=== PATIENT | female | born 1980 | race African-American/Black ===

== ENCOUNTER 2019-09-11 21:30 | Emergency (ER) | payer MEDICAID ==
[~2019-09-11] VITALS: Ht 170.2 cm; Wt 59.0 kg
[2019-09-11 23:04] VITALS: BP 130/77
== END 2019-09-11 23:09 | disposition home or self-care (01) ==
LOC: ER 21:30
DX: R42 Dizziness and giddiness (principal); Z90.49 Acquired absence of other specified parts of digestive tract
CPT/HCPCS: 99282

== ENCOUNTER 2019-12-06 10:16 | Emergency (ER) | payer MEDICAID ==
[~2019-12-06] VITALS: Ht 170.2 cm; Wt 57.0 kg
[2019-12-06] MEDS ORDERED: SODIUM CHLORIDE 0.9% 1,000 ML IV ONE (10:55)
[2019-12-06] MEDS ORDERED: ACETAMINOPHEN 325MG TABLET PO STA (10:55)
[2019-12-06] MEDS ORDERED: DIPHENHYDRAMINE 50MG/ML VIAL IV ONE (11:00)
[2019-12-06] MEDS ORDERED: DEXAMETHASONE 10 MG/ML VIAL IV ONE (11:00)
[2019-12-06] MEDS ORDERED: METOCLOPRAMIDE HCL 10MG/2ML VIAL IV ONE (11:00)
[2019-12-06] MEDS ORDERED: LORAZEPAM 2MG/ML CPJ IV ONE (11:00)
[2019-12-06 11:28] LABS: CLARITY URINE CLEAR (CLEAR); COLOR URINE YELLOW (YELLOW); KETONES URINE 3+ (NEGATIVE); LEUKOCYTE ESTERASE URINE 1+ (NEGATIVE); NITRITE URINE NEGATIVE (NEGATIVE); OCCULT BLOOD URINE 2+ (NEGATIVE); PH URINE 6.5 (4.5-8.0); PROTEIN URINE TRACE (NEGATIVE); SPECIFIC GRAVITY URINE 1.022 (1.005-1.030)
[2019-12-06 11:39] LABS: BASOPHILS % 0.4 % (0.0-2.0); EOSINOPHILS % 0.2 % (0.0-5.0); HEMATOCRIT. 38.7 % (36.0-48.0); LYMPHOCYTES % 24.9 % (20.0-50.0); MEAN CORPUSCULAR HEMOGLOBIN 27.9 pg (28.0-32.0); MEAN CORPUSCULAR VOLUME 83.2 fL (81.0-99.0); MEAN PLATELET VOLUME 7.9 fl (7.4-10.4); MONOCYTES % 7.4 % (2.0-8.0); NEUTROPHILS % 67.1 % (40.0-76.0); PLATELET 300 x1000/uL (130-400); RED BLOOD CELL COUNT 4.66 mill/uL (4.2-5.4); RED CELL DISTRIBUTION WIDTH 14.4 % (11.6-14.6)
[2019-12-06 11:47] LABS: CHLORIDE 110 mEq/L (98-107)
[2019-12-06 11:50] LABS: PROTHROMBIN TIME 10.5 sec (9.6-11.0)
[2019-12-06 12:26] LABS: HCG SCREEN NEGATIVE
[2019-12-06 14:08] VITALS: BP 121/76
== END 2019-12-06 14:11 | disposition home or self-care (01) ==
LOC: ER 10:16
DX: R42 Dizziness and giddiness (principal); R51 Headache; Z90.49 Acquired absence of other specified parts of digestive tract
CPT/HCPCS: 36415; 70450; 71045; 80053; 81003; 81025; 84703; 85025; 85610; 87086; 93005; 96361; 96374; 96375; 99285; J1100; J1200; J2060; J2765; J7030

== ENCOUNTER 2021-10-15 08:19 | Emergency (ER) | payer MEDICAID ==
[~2021-10-15] VITALS: Ht 167.6 cm; Wt 80.0 kg
[2021-10-15 08:29] VITALS: BP 131/92
[2021-10-15] MEDS ORDERED: THROAT LOZENGES-BENZOCAINE/MENTH/CETYLPYRD CL LOZENGES MM ONE (08:45)
[2021-10-15] MEDS ORDERED: ACETAMINOPHEN 325MG TABLET PO ONE (08:45)
[2021-10-15 10:05] LABS: MONOTEST NEGATIVE (NEGATIVE)
[2021-10-15] MEDS ORDERED: ACET-2708 MT (10:46)
[2021-10-15] MEDS ORDERED: MED4 MT (10:46)
== END 2021-10-15 10:53 | disposition home or self-care (01) ==
LOC: ER 08:34
DX: J02.9 Acute pharyngitis, unspecified (principal); I10 Essential (primary) hypertension; Z20.822 Contact with and (suspected) exposure to COVID-19; Z90.49 Acquired absence of other specified parts of digestive tract; Z13.9 Encounter for screening, unspecified
CPT/HCPCS: 71045; 81025; 86308; 87070; 87426; 87430; 99284; C9803

== ENCOUNTER 2022-12-23 07:35 | Emergency (ER) | payer MEDICAID ==
[~2022-12-23] VITALS: Ht 172.7 cm; Wt 63.5 kg
[~2022-12-23 07:35] MED LIST: ACET-2708 MT; AMOX500T2 MT; CETI-106 MT; MED4 MT
[2022-12-23 07:48] VITALS: BP 144/87; PULSE 102; RESP 16; TEMP 98.5; O2SAT 99
== END 2022-12-23 10:48 | disposition left against medical advice (07) ==
LOC: ER 07:35
DX: Z53.21 Procedure and treatment not carried out due to patient leaving prior to being seen by health care provider (principal)
CPT/HCPCS: 99281

== ENCOUNTER 2023-07-13 08:28 | Emergency (ER) | payer MEDICAID, OTHER ==
[~2023-07-13] VITALS: Ht 172.7 cm; Wt 73.0 kg
[2023-07-13 08:31] VITALS: O2SAT 99
[2023-07-13] MEDS: SODIUM CHLORIDE 0.9% 1,000 ML IV ONE (09:12)
[2023-07-13 09:29] LABS: BASOPHILS % 0.3 % (0.0-2.0); HEMATOCRIT. 39.1 % (36.0-48.0); HEMOGLOBIN. 12.5 g/dL (12.0-16.0); LYMPHOCYTES % 17.3 % (20.0-50.0); MEAN CORPUSCULAR HEMOGLOBIN 26.6 pg (28.0-32.0); MEAN CORPUSCULAR HGB CONC 32.1 g/dL (31.0-37.0); MEAN CORPUSCULAR VOLUME 82.9 fL (81.0-99.0); MEAN PLATELET VOLUME 7.4 fl (7.4-10.4); MONOCYTES % 6.2 % (2.0-8.0); NEUTROPHILS % 76.2 % (40.0-76.0); PLATELET 276 x1000/uL (130-400); RED BLOOD CELL COUNT 4.72 mill/uL (4.2-5.4); RED CELL DISTRIBUTION WIDTH 14.8 % (11.6-14.6); WHITE BLOOD COUNT 13.1 x1000/uL (4.5-11.0)
[2023-07-13 09:39] LABS: HCG SCREEN NEGATIVE
[2023-07-13 09:45] LABS: ALANINE AMINOTRANSFERASE 84 IU/L (10-49); ALBUMIN 5.3 g/dL (3.2-4.8); ASPARTATE AMINOTRANSFERASE 56 IU/L (<34); BILIRUBIN TOTAL 0.7 mg/dL (0.1-1.0); CALCIUM 9.3 mg/dL (8.7-10.4); CARBON DIOXIDE 18 mEq/L (21-32); CHLORIDE 107 mEq/L (98-107); CREATININE 0.6 mg/dL (0.6-1.0); GLUCOSE 87 mg/dL (70-105); POTASSIUM 4.3 mEq/L (3.5-5.1); PROTEIN TOTAL 8.9 g/dL (6.0-8.3); SODIUM 135 mEq/L (136-145); THYROID STIMULATING HORMONE 1.11 uIU/mL (0.55-4.78); UREA NITROGEN BLOOD 14 mg/dL (9-23)
[2023-07-13 10:00] LABS: TROPONIN I HIGH SENSITIVITY < 4 ng/L (3.0-34)
[2023-07-13] MEDS: ONDANSETRON HCL 4MG/2ML INJ IV ONE (11:06)
[2023-07-13] MEDS: MORPHINE SULFATE 2 MG/ML CPJ (NOT FOR IM USE) IV ONE (11:06)
[2023-07-13 11:32] LABS: CLARITY URINE CLEAR (CLEAR); COLOR URINE YELLOW (YELLOW); GLUCOSE URINE NEGATIVE (NEGATIVE); KETONES URINE 3+ (NEGATIVE); LEUKOCYTE ESTERASE URINE 1+ (NEGATIVE); NITRITE URINE NEGATIVE (NEGATIVE); OCCULT BLOOD URINE 1+ (NEGATIVE); PH URINE 5.5 (4.5-8.0); PROTEIN URINE NEGATIVE (NEGATIVE); SPECIFIC GRAVITY URINE 1.023 (1.005-1.030); UROBILINOGEN URINE 0.2 E.U./dL (0.2-1.0)
[2023-07-13 11:48] LABS: BACTERIA URINE 2+; RBC URINE 0-2 /hpf (0-2); SQUAMOUS EPITHELIAL CELL URINE 2+ /lpf (RARE/1+); YEAST URINE NONE SEEN
[2023-07-13 12:45] LABS: TROPONIN I HIGH SENSITIVITY < 4 ng/L (3.0-34)
[2023-07-13 12:58] LABS: *AMPHETAMINES SCREEN URINE NEGATIVE (NEGATIVE); *BARBITURATES SCREEN URINE NEGATIVE (NEGATIVE); *BENZODIAZEPINES SCREEN URINE NEGATIVE (NEGATIVE); *COCAINE SCREEN URINE NEGATIVE (NEGATIVE); CANNABINOID URINE SCREEN NEGATIVE (NEGATIVE); ECSTASY MDMA SCREEN URINE NEGATIVE (NEGATIVE); METHADONE URINE SCREEN Neg (NEGATIVE); OPIATES URINE SCREEN NEGATIVE (NEGATIVE); PHENCYCLIDINE URINE SCREEN NEGATIVE (NEGATIVE)
[2023-07-13] MEDS ORDERED: IBUP-1523 MT (16:00)
[2023-07-13] MEDS ORDERED: HYDR-4001 MT (16:00)
[2023-07-13] MEDS ORDERED: ONDA4TAB50 MT (16:00)
[2023-07-13 16:30] VITALS: BP 134/79; PULSE 89; RESP 19; TEMP 98.8
== END 2023-07-13 16:37 | disposition home or self-care (01) ==
LOC: ER 08:28
DX: N23 Unspecified renal colic (principal); N63.0 Unspecified lump in unspecified breast; Z90.49 Acquired absence of other specified parts of digestive tract; Z79.899 Other long term (current) drug therapy
CPT/HCPCS: 99285; 96360; 71275; 71045; 80053; 80305; 81003; 84703; 83880; 84443; 85025; 85379; 87086; 84484; 36415; 93005; J7030

== ENCOUNTER 2024-12-12 00:23 | Emergency (ER) | payer MEDICAID ==
[~2024-12-12] VITALS: Ht 172.7 cm; Wt 82.1 kg
[~2024-12-12 00:23] MED LIST changes: +HYDR-4001 MT; +IBUP-1523 MT; -MED4 MT; +METH4TAB95 MT; +ONDA4TAB50 MT
[2024-12-12 00:39] VITALS: O2SAT 98
[2024-12-12 00:59] LABS: BASOPHILS % 0.5 % (0.0-2.0); EOSINOPHILS % 1.0 % (0.0-5.0); HEMATOCRIT. 34.9 % (36.0-48.0); HEMOGLOBIN. 11.6 g/dL (12.0-16.0); LYMPHOCYTES % 41.1 % (20.0-50.0); MEAN PLATELET VOLUME 7.1 fl (7.4-10.4); MONOCYTES % 6.6 % (2.0-8.0); NEUTROPHILS % 50.8 % (40.0-76.0); PLATELET 316 x1000/uL (130-400); RED BLOOD CELL COUNT 4.28 mill/uL (4.2-5.4); RED CELL DISTRIBUTION WIDTH 14.3 % (11.6-14.6)
[2024-12-12 01:18] LABS: CREATININE 0.7 mg/dL (0.6-1.0)
[2024-12-12 01:19] LABS: UREA NITROGEN BLOOD 10 mg/dL (9-23)
[2024-12-12 01:20] LABS: TROPONIN I HIGH SENSITIVITY < 4 ng/L (3.0-34)
[2024-12-12 03:15] VITALS: BP 135/95; PULSE 86; RESP 20; TEMP 36.8; O2SAT 99
== END 2024-12-12 03:16 | disposition home or self-care (01) ==
LOC: NM 00:59
DX: R07.89 Other chest pain (principal); R00.2 Palpitations; E87.6 Hypokalemia; Z90.49 Acquired absence of other specified parts of digestive tract; Z79.899 Other long term (current) drug therapy
CPT/HCPCS: 36415; 71045; 80048; 84484; 85025; 93005; 99285